=== PATIENT | female | born 1975 | race Caucasian/White ===

== ENCOUNTER → 2018-09-12 11:32 | Outpatient (CLI) | payer BC, SELFPAY ==
--- NOTE | 2018-09-12 11:34 | DI.RAD.S_ITS ---
PROCEDURE: XR CHEST 2V INDICATIONS: cough TECHNIQUE: 2 views of the chest were acquired. COMPARISON: None. FINDINGS: Surgical changes and devices: None. Lungs and pleura: Lungs are clear. No pleural effusions or pneumothorax. Mediastinum: Mediastinal contours are normal. Heart size is normal. Bones and chest wall: No suspicious bony abnormalities. Age-indeterminate compression deformity involving a mid thoracic spine is present. Soft tissues appear unremarkable. IMPRESSION: 1. No acute cardiopulmonary processes evident. 2. Age-indeterminate mid thoracic compression deformity. Dictated by: Jung Latif M.D. on 09/12/2018 at 10:52 Approved by: Jung Latif M.D. on 09/12/2018 at 10:56
== END ==
PROVIDERS: Visit Provider Physician Assistant
DX: M51.04 Intervertebral disc disorders with myelopathy, thoracic region (principal); R05 Cough
CPT/HCPCS: 71046